=== PATIENT | female | born 1985 | race Caucasian/White ===

== ENCOUNTER 2018-06-13 11:13 | Emergency (ER) | payer MEDICAID, OTHER ==
[2018-06-13] MEDS ORDERED: ONDANSETRON 4 MG/2 ML VIAL IVP ONE (11:37)
[2018-06-13] MEDS ORDERED: NS 1,000 ML IV ONE ×2 (11:37→11:58)
[2018-06-13] MEDS ORDERED: KETOROLAC 15 MG/1 ML SDV ONE (11:50)
--- NOTE | 2018-06-13 11:50 | EDPHY ---
HPI/HX/ROS/PE/MDM Narrative: CHIEF COMPLAINT: Nausea, diarrhea, flank pain HPI: This patient is a healthy 33 year old female complaining of nausea, diarrhea, and bilateral flank pain. Her symptoms began with nausea and diarrhea about four days ago. Yesterday she developed dull bilateral flank pain and some mild shortness of breath. The took a home test which was negative. She denies dysuria, frequent urination, or malodorous urine. Has had UTI in the past and her current symptoms do not feel similar to this. She is concerned her IUD may be out of place as her boyfriend mentioned he thought he could feel it during intercourse. She denies any unusual vaginal discharge or bleeding. She denies recent fever, antibiotic use, or travel. REVIEW OF SYSTEMS: A comprehensive 10 system review of systems is otherwise negative aside from elements mentioned in the history of present illness and medical decision making. PMH: Denies. IUD in place. SOCIAL HISTORY: Single. Lives in [place]. Self-employed. PHYSICAL EXAM: General:Patient is alert, in no acute distress. ENT:Eyes are normal to inspection. ENT inspection normal. Neck: Normal inspection. Full range of motion. Respiratory:No respiratory distress. Breath sounds normal bilaterally. Cardiovascular: Regular rate and rhythm. Strong peripheral pulses. Normal cap refill. Abdomen:The abdomen is nontender to palpation. There are no peritoneal signs. There are normal bowel sounds. Back: Normal to inspection. No tenderness to palpation. Skin: Normal color. No rash. Warm and dry. Extremities: Normal appearance. Full range of motion. Neuro: Oriented x3. Normal motor function. Normal sensory function. ED Course: 33 y/o female presents with nausea, diarrhea, bilateral flank pain. Exam unremarkable, no flank tenderness. Plan to administer 15mg IV Toradol for pain relief. Plan to administer 1L IV NS. Plan for labs including CBC, chemistries, UA, BHCG. Plan for x-ray abdomen. Abdominal x-ray is negative for acute processes. Labs largely unremarkable, WBC elevated around 12,000. BHCG negative. UA negative for UTI. Reassessed patient. Discussed imaging and laboratory results. I offered further workup including CT abdomen/pelvis. Patient declines CT or other further testing. Plan to discharge home in good condition. Prescription for Zofran provided for nausea. Follow up and return precautions discussed. The patient is comfortable with this plan. - Data Points Imaging Results: Imaging Impressions Abdomen X-Ray 06/13/18 12:00 Impression: Negative. No pneumoperitoneum or evidence of bowel obstruction. Imaging: I viewed and interpreted images myself Laboratory Results: Laboratory Results 06/13/18 11:30 06/13/18 11:30 06/13/18 06/13/18 06/13/18 11:30 11:30 11:30 WBC 12.85 10^3/uL H 10^3/uL (3.80-9.50) RBC 4.40 10^6/uL 10^6/uL (4.18-5.33) Hgb 14.3 g/dL g/dL (12.6-16.3) Hct 41.5 % % (38.0-47.0) MCV 94.3 fL fL (81.5-99.8) MCH 32.5 pg pg (27.9-34.1) MCHC 34.5 g/dL g/dL (32.4-36.7) RDW 11.9 % % (11.5-15.2) Plt Count 229 10^3/uL 10^3/uL (150-400) MPV 9.8 fL fL (8.7-11.7) Neut % (Auto) 78.0 % H % (39.3-74.2) Lymph % (Auto) 10.7 % L % (15.0-45.0) [place] % (Auto) 10.0 % % (4.5-13.0) Eos % (Auto) 0.5 % L % (0.6-7.6) Baso % (Auto) 0.5 % % (0.3-1.7) Nucleat RBC Rel Count 0.0 % % (0.0-0.2) Absolute Neuts (auto) 10.02 10^3/uL H 10^3/uL (1.70-6.50) Absolute Lymphs (auto) 1.38 10^3/uL 10^3/uL (1.00-3.00) Absolute Monos (auto) 1.28 10^3/uL H 10^3/uL (0.30-0.80) Absolute Eos (auto) 0.06 10^3/uL 10^3/uL (0.03-0.40) Absolute Basos (auto) 0.07 10^3/uL 10^3/uL (0.02-0.10) Absolute Nucleated RBC 0.00 10^3/uL 10^3/uL (0-0.01) Immature Gran % 0.3 % % (0.0-1.1) Immature Gran # 0.04 10^3/uL 10^3/uL (0.00-0.10) Sodium 141 mEq/L mEq/L (135-145) Potassium 3.9 mEq/L mEq/L (3.3-5.0) Chloride 104 mEq/L mEq/L (97-110) Carbon Dioxide 27 mEq/l mEq/l (22-31) Anion Gap 10 mEq/L mEq/L (8-16) BUN 5 mg/dL L mg/dL (7-23) Creatinine 0.6 mg/dL mg/dL (0.6-1.0) Estimated GFR > 60 Glucose 90 mg/dL mg/dL (70-100) Calcium 9.3 mg/dL mg/dL (8.5-10.4) Beta HCG, Qual NEGATIVE Urine Color Urine Appearance Urine pH Ur Specific [place] Urine Protein Urine Ketones Urine Blood Urine Nitrate Urine Bilirubin Urine Urobilinogen Ur Leukocyte Esterase Urine Glucose 06/13/18 11:30 WBC RBC Hgb Hct MCV MCH MCHC RDW Plt Count MPV Neut % (Auto) Lymph % (Auto) Grainger % (Auto) Eos % (Auto) Baso % (Auto) Nucleat RBC Rel Count Absolute Neuts (auto) Absolute Lymphs (auto) Absolute Monos (auto) Absolute Eos (auto) Absolute Basos (auto) Absolute Nucleated RBC Immature Gran % Immature Gran # Sodium Potassium Chloride Carbon Dioxide Anion Gap BUN Creatinine Estimated GFR Glucose Calcium Beta HCG, Qual Urine Color PALE YELLOW Urine Appearance CLEAR Urine pH 5.0 (5.0-7.5) Ur Specific [place] 1.005 (1.002-1.030) Urine Protein NEGATIVE (NEGATIVE) Urine Ketones NEGATIVE (NEGATIVE) Urine Blood NEGATIVE (NEGATIVE) Urine Nitrate NEGATIVE (NEGATIVE) Urine Bilirubin NEGATIVE (NEGATIVE) Urine Urobilinogen NEGATIVE EU EU (0.2-1.0) Ur Leukocyte Esterase NEGATIVE (NEGATIVE) Urine Glucose NEGATIVE (NEGATIVE) Medications Given: Discontinued Medications Sodium Chloride (Ns) 1,000 mls @ 3,000 mls/hr IV ONCE ONE Stop: 06/13/18 11:56 Last Admin: 06/13/18 11:40 Dose: 1,000 mls Sodium Chloride (Ns) 1,000 mls @ 0 mls/hr IV EDNOW ONE; Wide Open PRN Reason: Protocol Stop: 06/13/18 11:59 Last Admin: 06/13/18 12:11 Dose: Not Given Ketorolac Tromethamine (Toradol) 15 mg IVP EDNOW ONE Stop: 06/13/18 11:53 Last Admin: 06/13/18 11:53 Dose: 15 mg Ondansetron HCl (Zofran) 4 mg IVP EDNOW ONE Stop: 06/13/18 11:38 Last Admin: 06/13/18 11:40 Dose: 4 mg General Time Seen by Provider: 06/13/18 11:43 Initial Vital Signs: Initial Vital Signs Temperature (C) 36.9 C 06/13/18 11:16 Heart Rate 92 06/13/18 11:16 Respiratory Rate 16 06/13/18 11:16 Blood Pressure 101/66 06/13/18 11:16 O2 Sat (%) 98 06/13/18 11:16 O2 Delivery Mode Room Air Allergies/Adverse Reactions: No Known Allergies Allergy (Unverified 06/13/18 11:16) Home Medications: Medication Instructions Recorded LaMICtal 06/13/18 Ondansetron Odt [Zofran Odt] 4 mg PO Q4PRN PRN #10 tab 06/13/18 Departure - Departure Disposition: Home, Routine, Self-Care Clinical Impression: Nausea, Flank pain Diarrhea Qualifiers: Diarrhea type: unspecified type Qualified Code(s): R19.7 - Diarrhea, unspecified Condition: Good Instructions: Acute Diarrhea (ED), Flank Pain (ED) Additional Instructions: 1. Follow up with your primary care provider. 2. Take Zofran as prescribed as needed for nausea. 3. Return to the emergency department for worsening or changing pain or failure to improve in the next 1-2 days. Referrals: Papito Meyers MD [Medical Doctor] - As per Instructions Prescriptions: Ondansetron Odt [Zofran Odt] 4 mg PO Q4PRN PRN #10 tab PRN Reason: Nausea Report Scribed for: David South Report Scribed by: Marisabel Renteria Date of Report: 06/13/18 Time of Report: 13:23 Physician Review and Approval Statement: Portions of this note were transcribed by an ED scribe. I personally performed the history, physical exam, and medical decision making; and confirm the accuracy of the information in the transcribed note.
[2018-06-13] MEDS ORDERED: KETOROLAC 15 MG/1 ML SDV IVP ONE (11:52)
[2018-06-13 12:05] LABS: PLATELET COUNT 229 10^3/uL (150-400)
[2018-06-13 13:05] VITALS: BP 106/60
== END 2018-06-13 13:31 | disposition home or self-care (01) ==
DX: R19.7 Diarrhea, unspecified (principal); R11.0 Nausea; R10.9 Unspecified abdominal pain; E86.9 Volume depletion, unspecified
CPT/HCPCS: 96374; J1885